=== PATIENT | male | born 1965 | race Caucasian/White ===

== ENCOUNTER 2016-12-15 07:12 | Emergency (ER) | payer MEDICARE, OTHER ==
[~2016-12-15] VITALS: Ht 165.1 cm; Wt 65.9 kg
--- NOTE | 2016-12-15 08:52 | REP ---
LEFT SHOULDER, THREE VIEWS: Three views of the left shoulder are performed. There is mild narrowing at the acromioclavicular joint. There is no acute fracture or dislocation. Signed by Carroll Frank MD 12/18/2016 09:42 A
--- NOTE | 2016-12-15 08:57 | REP ---
BILATERAL INGUINAL ULTRASOUND: Real-time sonographic evaluation of bilateral inguinal regions is performed at rest and with Valsalva maneuver. No inguinal hernia is seen bilaterally. There is no mass or fluid collection. IMPRESSION: No evidence of inguinal hernia bilaterally. Signed by Carroll Frank MD 12/18/2016 09:43 A
[2016-12-15] MEDS ORDERED: IBUP-1022 PO (09:04)
[2016-12-15 09:10] VITALS: BP 123/79
--- NOTE | 2016-12-15 09:24 | REP ---
Right ribs four views: There are lucencies at the anterior tips of the eleventh and twelfth ribs, likely artifact from costochondral calcification, however, correlation with clinical point tenderness is recommended. There are no other right rib abnormalities. There is no right pneumothorax, hemothorax or pulmonary contusion. Signed by Carroll Cardoza MD 12/15/2016 09:15 A
--- NOTE | 2016-12-15 09:26 | REP ---
Left knee four views : There is no fracture or dislocation. Mineralization and joint spaces are normal. There are no calcifications or foreign bodies. Impression: Negative left knee . Signed by Carroll Cardoza MD 12/15/2016 09:17 A
== END 2016-12-15 09:17 | disposition home or self-care (01) ==
LOC: M ED 07:12
DX: S20.211A Contusion of right front wall of thorax, initial encounter (principal); S39.91XA Unspecified injury of abdomen, initial encounter; S80.01XA Contusion of right knee, initial encounter; S80.02XA Contusion of left knee, initial encounter; S40.012A Contusion of left shoulder, initial encounter; W19.XXXA Unspecified fall, initial encounter; Y92.9 Unspecified place or not applicable; Y93.9 Activity, unspecified; Y99.0 Civilian activity done for income or pay; F17.200 Nicotine dependence, unspecified, uncomplicated; Z88.5 Allergy status to narcotic agent

== ENCOUNTER → 2017-04-27 | Outpatient (CLI) | payer OTHER | LOC: M RAD 10:12 | DX: M47.892 Other spondylosis, cervical region (principal); M54.12 Radiculopathy, cervical region | CPT/HCPCS: 72141 ==

== ENCOUNTER → 2017-06-29 | Outpatient (REF) | payer OTHER ==
[2017-06-29 17:49] LABS: PLATELET COUNT, AUTOMATED 270 10^3/uL (150-450)
[2017-06-29 18:02] LABS: PARTIAL THROMBOPLASTIN TIME 31.4 SECONDS (26.8-37.9); PROTHROMBIN TIME 13.3 SECONDS (12.4-14.5)
[2017-06-29 18:16] LABS: COLLAGEN EPINEPHRINE 109 SECONDS (74-162)
== END ==
LOC: M LABDRAW1 17:19
DX: M47.892 Other spondylosis, cervical region (principal)

== ENCOUNTER → 2018-01-04 | Outpatient (REF) | payer OTHER ==
[2018-01-04 16:38] LABS: BLOOD UREA NITROGEN 17 MG/DL (7-18)
[2018-01-04 16:38] LABS: CREATININE FOR GFR 0.84 MG/DL (0.70-1.30); GLOMERULAR FILTRATION RATE > 60.0 (>56)
== END ==
LOC: M LABDRAW1 16:08
DX: M48.02 Spinal stenosis, cervical region (principal)

== ENCOUNTER → 2018-03-06 | Outpatient (REF) | payer OTHER ==
[~2018-03-06] MED LIST: IBUP-1022 PO
[2018-03-06 16:15] LABS: INR 0.96; PROTHROMBIN TIME 12.9 SECONDS (12.1-14.4)
== END ==
LOC: M LABDRAW1 15:32
PROVIDERS: ATTEND Physician Assistant
DX: Z01.812 Encounter for preprocedural laboratory examination (principal)

== ENCOUNTER → 2018-05-31 | Outpatient (CLI) | payer OTHER ==
--- NOTE | 2018-05-31 13:42 | REP ---
BILATERAL INGUINAL SONOGRAPHY: HISTORY: Question right inguinal hernia. The patient is status post bilateral inguinal herniorrhaphy. Comparison CT study is from March 13, 2014. SONOGRAPHIC FINDINGS: There is no abnormal fluid collection or evidence of mass or adenopathy on either side. Real-time on sonography obtained without and with Valsalva maneuver show no evidence of inguinal hernia on the right or the left. However, there is a right femoral hernia transmitting abdominal fat. This is seen with Valsalva only. It is reducible with respiration. IMPRESSION: No inguinal hernia seen on either side. However, there was a right femoral hernia transmitting abdominal fat with Valsalva only. This was spontaneously reducible with respiration. Electronically Signed by Ryan Rodriguez MD 05/31/2018 02:36 P
== END ==
LOC: M RAD 09:56
PROVIDERS: ATTEND Physician Assistant
DX: K41.90 Unilateral femoral hernia, without obstruction or gangrene, not specified as recurrent (principal)

== ENCOUNTER → 2018-10-04 | Outpatient (CLI) | payer OTHER ==
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
== END ==
LOC: M PAIN 13:00
PROVIDERS: ATTEND Anesthesiology
DX: R10.31 Right lower quadrant pain (principal); G89.29 Other chronic pain; F17.210 Nicotine dependence, cigarettes, uncomplicated; Z88.5 Allergy status to narcotic agent; Z79.899 Other long term (current) drug therapy

== ENCOUNTER → 2018-12-18 | Outpatient (CLI) | payer OTHER ==
[~2018-12-18] MED LIST changes: +BUPIVACAINE HCL 0.25% 30 ML VIAL As Ordered ONE; +ISOVUE-M 300 61% 15ML VIAL (Q9967) As Ordered ONE; +LIDOCAINE 1% SDV INJ 30 ML VIAL As Ordered ONE; +TRIAMCINOLONE ACETONIDE SUSP 40 MG/ML VIAL (J3301) As Ordered ONE; +diazePAM 2 MG TAB As Ordered ONE
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
== END ==
LOC: M PAIN 13:00
PROVIDERS: ATTEND Anesthesiology
DX: G58.8 Other specified mononeuropathies (principal); K21.9 Gastro-esophageal reflux disease without esophagitis; F17.210 Nicotine dependence, cigarettes, uncomplicated; Z79.899 Other long term (current) drug therapy; Z88.5 Allergy status to narcotic agent
CPT/HCPCS: 64450; J3301; Q9967

== ENCOUNTER → 2019-01-14 | Outpatient (CLI) | payer OTHER ==
[~2019-01-14] MED LIST changes: -BUPIVACAINE HCL 0.25% 30 ML VIAL As Ordered ONE; -ISOVUE-M 300 61% 15ML VIAL (Q9967) As Ordered ONE; -LIDOCAINE 1% SDV INJ 30 ML VIAL As Ordered ONE; -TRIAMCINOLONE ACETONIDE SUSP 40 MG/ML VIAL (J3301) As Ordered ONE; -diazePAM 2 MG TAB As Ordered ONE
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
== END ==
LOC: M PAIN 14:15
PROVIDERS: ATTEND Family Medicine
DX: G58.8 Other specified mononeuropathies (principal)

== ENCOUNTER → 2019-02-10 | Outpatient (CLI) | payer OTHER ==
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
== END ==
LOC: M PAIN 14:15
PROVIDERS: ATTEND Family Medicine
DX: G58.8 Other specified mononeuropathies (principal); F17.210 Nicotine dependence, cigarettes, uncomplicated; Z88.5 Allergy status to narcotic agent; Z79.899 Other long term (current) drug therapy

== ENCOUNTER 2019-03-29 14:51 | Emergency (ER) | payer MEDICAID, OTHER ==
[~2019-03-29] VITALS: Ht 165.1 cm; Wt 66.2 kg
[2019-03-29] MEDS ORDERED: GABA800T4 PO (15:01)
[2019-03-29] MEDS ORDERED: DULO40CA PO (15:01)
[2019-03-29] MEDS ORDERED: FLUORESCEIN OPHTH 1 MG STRIP OS ONE (15:30)
[2019-03-29] MEDS ORDERED: TETRACAINE 0.5% OPHTH SOLN 4ML OS ONE (15:30)
[2019-03-29] MEDS ORDERED: OFLOXACIN 0.3 % (OCUFLOX) OPTH SOL 5ML OS ONE (15:45)
[2019-03-29] MEDS ORDERED: ADACEL/BOOSTRIX VACCINE (DIPHTH/PERTUSS/ACELL/TETANUS)0.5ML SYR (90715) IM ONE (15:45)
[2019-03-29] MEDS ORDERED: OCUF0.25 OS (15:46)
[2019-03-29 15:55] VITALS: BP 111/61
== END 2019-03-29 16:08 | disposition home or self-care (01) ==
LOC: M ED 14:51
DX: T15.02XA Foreign body in cornea, left eye, initial encounter (principal); H16.002 Unspecified corneal ulcer, left eye; F17.200 Nicotine dependence, unspecified, uncomplicated; F12.10 Cannabis abuse, uncomplicated; Z88.5 Allergy status to narcotic agent

== ENCOUNTER → 2019-05-12 | Outpatient (CLI) | payer OTHER ==
[~2019-05-12] MED LIST changes: +DULO40CA PO; +GABA800T4 PO; +OCUF0.25 OS
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
== END ==
LOC: M PAIN 14:15
PROVIDERS: ATTEND Family Medicine
DX: G58.8 Other specified mononeuropathies (principal); G89.29 Other chronic pain; K21.9 Gastro-esophageal reflux disease without esophagitis; F17.210 Nicotine dependence, cigarettes, uncomplicated; Z88.5 Allergy status to narcotic agent; Z79.899 Other long term (current) drug therapy

== ENCOUNTER → 2019-05-30 | Outpatient (CLI) | payer OTHER ==
--- NOTE | 2019-05-30 10:52 | REPPI ---
Right wrist: Four views. History: Arthralgia. Findings: Four views right wrist demonstrate old post-traumatic deformity of the fifth metacarpal. There is a small subcortical cyst at the base of the first metacarpal and minimal first metacarpal carpal joint spurring is present. Bones, joints and soft tissues are otherwise unremarkable. Impression: No acute abnormality. Mild osteoarthritic changes at the first carpometacarpal articulation. Electronically Signed by Ryan Rodriguez MD 05/30/2019 10:43 A
== END ==
LOC: M PLAIMG 10:04
PROVIDERS: ATTEND Physician Assistant Medical
DX: M18.11 Unilateral primary osteoarthritis of first carpometacarpal joint, right hand (principal)

== ENCOUNTER → 2019-05-30 | Outpatient (REF) | payer OTHER ==
[2019-05-30 13:35] LABS: BASO # 0.1 10^3/uL (0.0-0.2); BASO % 1.2 % (0.0-1.0); EOS # 0.3 10^3/uL (0.0-0.5); HEMATOCRIT 48.5 % (42.0-52.0); HEMOGLOBIN 16.6 g/dl (13.5-17.5); LYMPH # 2.3 10^3/uL (1.5-5.0); LYMPH % 28.6 % (24.0-44.0); MEAN CORPUSCULAR HEMOGLOBIN 30.5 pg (27.0-33.0); MEAN CORPUSCULAR HGB CONC 34.2 g/dl (32.0-36.5); MEAN CORPUSCULAR VOLUME 89.2 fl (80.0-96.0); MONO # 0.6 10^3/uL (0.0-0.8); MONO % 7.8 % (0.0-5.0); NEUTROPHILS # 4.7 10^3/uL (1.5-8.5); NEUTROPHILS % 57.9 % (36.0-66.0); PLATELET COUNT, AUTOMATED 290 10^3/uL (150-450); RED BLOOD COUNT 5.44 10^6/uL (4.30-6.10); WHITE BLOOD COUNT 8.1 10^3/uL (4.0-10.0)
[2019-05-30 13:48] LABS: ALBUMIN 4.2 GM/DL (3.2-5.2); ALT/SGPT 28 U/L (12-78); BILIRUBIN,TOTAL 0.3 MG/DL (0.2-1.0); BLOOD UREA NITROGEN 15 MG/DL (7-18); CALCIUM LEVEL 9.2 MG/DL (8.5-10.1); CARBON DIOXIDE LEVEL 27 MEQ/L (21-32); CHLORIDE LEVEL 109 MEQ/L (98-107); CHOLESTEROL LEVEL 213 MG/DL (<200); CHOLESTEROL RISK RATIO 3.491 (<5); CREATININE FOR GFR 0.77 MG/DL (0.70-1.30); GLOMERULAR FILTRATION RATE > 60.0 (>56); GLUCOSE, FASTING 88 MG/DL (70-100); HDL CHOLESTEROL 61 MG/DL (>40); LDL CHOLESTEROL 137 MG/DL (<100); NON-HDL-C 152 MG/DL; POTASSIUM SERUM 4.2 MEQ/L (3.5-5.1); SODIUM LEVEL 138 MEQ/L (136-145); TOTAL PROTEIN 7.5 GM/DL (6.4-8.2); TRIGLYCERIDES LEVEL 74 MG/DL (<150)
== END ==
LOC: M SFHCPLAZ 09:51
PROVIDERS: ATTEND Physician Assistant Medical
DX: Z12.5 Encounter for screening for malignant neoplasm of prostate (principal); Z12.11 Encounter for screening for malignant neoplasm of colon; Z13.220 Encounter for screening for lipoid disorders

== ENCOUNTER → 2019-06-11 | Outpatient (CLI) | payer OTHER ==
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
== END ==
LOC: M PAIN 11:15
PROVIDERS: ATTEND Family Medicine
DX: G58.8 Other specified mononeuropathies (principal); F17.210 Nicotine dependence, cigarettes, uncomplicated; Z79.899 Other long term (current) drug therapy; Z88.5 Allergy status to narcotic agent

== ENCOUNTER → 2019-07-31 | Outpatient (CLI) | payer OTHER ==
[2019-07-31 15:25] LABS: PLATELET COUNT, AUTOMATED 264 10^3/uL (150-450)
[2019-07-31 15:37] LABS: INR 1.14; PROTHROMBIN TIME 14.3 SECONDS (11.8-14.0)
== END ==
LOC: M LAB 14:50
PROVIDERS: ATTEND Physician Assistant
DX: Z01.818 Encounter for other preprocedural examination (principal); M47.22 Other spondylosis with radiculopathy, cervical region

== ENCOUNTER → 2019-10-02 | Outpatient (REF) | payer OTHER ==
[~2019-10-02] MED LIST changes: +ATOR1TAB21; +CYCL5TAB; +DICL1GEL3; +DULO1CAP4 PO; +NEUR800T PO; +OMEP20TA17
== END ==
LOC: M LAB REF 11:33
PROVIDERS: ATTEND Dermatology
DX: C44.301 Unspecified malignant neoplasm of skin of nose (principal)

== ENCOUNTER 2019-11-14 12:06 | Emergency (ER) | payer OTHER ==
[~2019-11-14 12:06] MED LIST changes: -ATOR1TAB21; -CYCL5TAB; -DICL1GEL3; -DULO1CAP4 PO; -NEUR800T PO; -OMEP20TA17
[2019-11-14 12:42] LABS: VENOUS BASE EXCESS -0.9 (-2.0-2.0); VENOUS O2 SATURATION 56.9 % (60.0-80.0); VENOUS PARTIAL PRESSURE CO2 62.9 mmHg (38.0-50.0); VENOUS PARTIAL PRESSURE O2 30.9 mmHg (30.0-50.0); VENOUS PH 7.266 UNITS (7.330-7.430); VENOUS STANDARD HCO3 22.6 MEQ/L; VENOUS TOTAL CO2 29.9 MEQ/L (24.0-28.0)
[2019-11-14 12:46] LABS: BASO # 0.1 10^3/uL (0.0-0.2); BASO % 0.9 % (0.0-1.0); EOS # 0.2 10^3/uL (0.0-0.5); EOS % 2.6 % (0.0-3.0); HEMATOCRIT 47.4 % (42.0-52.0); HEMOGLOBIN 16.3 g/dl (13.5-17.5); LYMPH # 1.5 10^3/uL (1.5-5.0); LYMPH % 19.5 % (24.0-44.0); MEAN CORPUSCULAR HEMOGLOBIN 31.2 pg (27.0-33.0); MEAN CORPUSCULAR HGB CONC 34.4 g/dl (32.0-36.5); MEAN CORPUSCULAR VOLUME 90.8 fl (80.0-96.0); MONO # 0.5 10^3/uL (0.0-0.8); MONO % 6.8 % (0.0-5.0); NEUTROPHILS # 5.4 10^3/uL (1.5-8.5); NEUTROPHILS % 69.8 % (36.0-66.0); PLATELET COUNT, AUTOMATED 289 10^3/uL (150-450); RED BLOOD COUNT 5.22 10^6/uL (4.30-6.10); WHITE BLOOD COUNT 7.8 10^3/uL (4.0-10.0)
[2019-11-14 13:20] LABS: BLOOD UREA NITROGEN 15 MG/DL (7-18); CALCIUM LEVEL 9.7 MG/DL (8.5-10.1); CARBON DIOXIDE LEVEL 30 MEQ/L (21-32); CHLORIDE LEVEL 105 MEQ/L (98-107); CREATININE FOR GFR 0.84 MG/DL (0.70-1.30); ETHYL ALCOHOL (ETHANOL) < 0.003 % (0.000-0.010); FREE T4 1.01 NG/DL (0.76-1.46); GLOMERULAR FILTRATION RATE > 60.0 (>56); GLUCOSE, FASTING 100 MG/DL (70-100); MAGNESIUM LEVEL 2.3 MG/DL (1.8-2.4); POTASSIUM SERUM 4.5 MEQ/L (3.5-5.1); SODIUM LEVEL 138 MEQ/L (136-145)
[2019-11-14] MEDS ORDERED: NS 1,000 ML IV ONE (16:00)
--- NOTE | 2019-11-14 16:23 | REPVR ---
PROCEDURE INFORMATION: Exam: CT Head Without Contrast Exam date and time: 11/14/2019 1:03 PM Age: 53 years old Clinical indication: Injury or trauma; Fall; Initial encounter; Blunt trauma (contusions or hematomas); Syncope and collapse; Additional info: Syncope/trauma TECHNIQUE: Imaging protocol: Computed tomography of the head without contrast. Axial and coronal reformatted images were created and reviewed. Radiation optimization: All CT scans at this facility use at least one of these dose optimization techniques: automated exposure control; mA and/or kV adjustment per patient size (includes targeted exams where dose is matched to clinical indication); or iterative reconstruction. COMPARISON: No relevant prior studies available. FINDINGS: Brain: No CT evidence of acute intracranial hemorrhage or acute territorial infarction. No significant mass effect or midline shift. Basal cisterns patent. Ventricles: Normal in size and configuration. Bones/joints: No acute osseous abnormality. Mild chronic appearing deformity of the right lamina papyracea. Paranasal sinuses: Mild ethmoid mucosal thickening. Mastoid air cells: Grossly unremarkable. Soft tissues: Grossly unremarkable. IMPRESSION: 1. No CT evidence of acute intracranial pathology. 2. Additional findings, as above. Electronically signed by: Raymond Crane On 11/14/2019 16:23:07 PM
[2019-11-14 16:36] LABS: AMPHETAMINES LEVEL URINE NEGATIVE (NEGATIVE); BARBITURATES URINE NEGATIVE (NEGATIVE); BENZODIAZEPINES URINE NEGATIVE (NEGATIVE); CANNABINOIDS URINE POSITIVE (NEGATIVE); COCAINE METABOLITE URINE NEGATIVE (NEGATIVE); METHADONE URINE NEGATIVE (NEGATIVE); OPIATES URINE NEGATIVE (NEGATIVE); PHENCYCLIDINE URINE NEGATIVE (NEGATIVE)
[2019-11-14 18:45] VITALS: BP 111/60
--- NOTE | 2019-11-15 12:01 | ECGEPIP ---
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
--- NOTE | 2019-11-15 12:07 | ECGEPIP ---
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
[2019-11-21] MEDS ORDERED: ATOR1TAB21 (13:06)
[2019-11-21] MEDS ORDERED: NEUR800T PO (13:06)
[2019-11-21] MEDS ORDERED: DULO1CAP4 PO (13:06)
[2019-11-21] MEDS ORDERED: OMEP20TA17 (13:06)
[2019-11-21] MEDS ORDERED: CYCL5TAB (13:06)
[2019-11-21] MEDS ORDERED: DICL1GEL3 (13:06)
== END 2019-11-14 18:52 | disposition home or self-care (01) ==
LOC: M ED 12:06 → M ED INP 17:34 → UNDOADMIN 17:34 → M ED 18:52
DX: R55 Syncope and collapse (principal); Z79.899 Other long term (current) drug therapy; Z88.5 Allergy status to narcotic agent
CPT/HCPCS: 70450; 80048; 80307; 82803; 83735; 84439; 84443; 85025; 93005; 93041; 96360; 99285; G0480

== ENCOUNTER → 2019-11-14 | Outpatient (REF) | payer OTHER | LOC: M LAB REF 09:16 | PROVIDERS: ATTEND Dermatology | DX: C44.81 Basal cell carcinoma of overlapping sites of skin (principal) ==

== ENCOUNTER → 2019-11-20 | Outpatient (CLI) | payer OTHER ==
[~2019-11-20] MED LIST changes: +ATOR1TAB21; +CYCL5TAB; +DICL1GEL3; +DULO1CAP4 PO; +NEUR800T PO; +OMEP20TA17
== END ==
LOC: M LABSMTC 13:03
PROVIDERS: ATTEND Anesthesiology
DX: Z01.812 Encounter for preprocedural laboratory examination (principal); Z20.828 Contact with and (suspected) exposure to other viral communicable diseases
CPT/HCPCS: C9803; U0003

== ENCOUNTER → 2019-11-21 | Outpatient (CLI) | payer OTHER ==
[~2019-11-21] MED LIST changes: +PROHANCE 279.3MG/ML 15ML VIAL As Ordered ONE
--- NOTE | 2019-11-24 09:50 | REPVR ---
PROCEDURE INFORMATION: Exam: MR Neck Without and With Contrast Exam date and time: 11/21/2019 5:40 PM Age: 54 years old Clinical indication: Condition or disease; Cancer; Other: Lacrimal duct and side of nose; Additional info: Basal cell carcinoma of noseskin TECHNIQUE: Imaging protocol: MR images of the neck without and with intravenous contrast. Contrast material: PROHANCE; Contrast volume: 12 ml; Contrast route: INTRAVENOUS (IV); COMPARISON: MRI-Spine,Cervical without con 04/27/2017 10:41 AM FINDINGS: Orbits: Examination reveals bilateral globes to be normal in size and morphology. The optic nerves are normal in thickness and signal intensity and symmetric bilaterally. The extraocular muscles are normal in thickness and signal intensity. The retroconal fat has a normal appearance. The lacrimal glands appear normal bilaterally. Nasopharynx: Unremarkable. Oropharynx: Unremarkable. Hypopharynx: Unremarkable. Larynx: Unremarkable. Submandibular/Parotid glands: Unremarkable. Sinuses: Mild mucosal thickening is seen in the paranasal sinuses. Retropharyngeal space: Unremarkable. Brain: The visualized brain parenchyma is unremarkable. Vasculature: Unremarkable. Lymph nodes: No significant lymphadenopathy is seen. Soft tissues: Examination reveals approximately 3 x 2 x 1.3 cm heterogeneously enhancing mass in the subcutaneous soft tissues with thickening of the overlying skin located lateral to the right nasal bone and inferomedial to the right orbit in the right nasolabial fold. This appears hypointense on T1 hyperintense on T2 and demonstrates heterogeneous contrast enhancement and is consistent with known history of basal cell carcinoma of the skin. No definite erosion is noted of the adjacent right nasal bone. No definite right intra orbital extension is seen. Bones/joints: Bone marrow signal intensity of the visualized osseous structures is unremarkable. No acute fracture or dislocation is seen. IMPRESSION: Examination reveals approximately 3 x 2 x 1.3 cm heterogeneously enhancing mass in the subcutaneous soft tissues with thickening of the overlying skin located lateral to the right nasal bone and inferomedial to the right orbit in the right nasolabial fold. This appears hypointense on T1 hyperintense on T2 and demonstrates heterogeneous contrast enhancement and is consistent with known history of basal cell carcinoma of the skin. No definite erosion is noted of the adjacent right nasal bone. No definite right intra orbital extension is seen. Electronically signed by: Sonu Gorman On 11/24/2019 09:50:25 AM
== END ==
LOC: M RAD 15:52
PROVIDERS: ATTEND Plastic Surgery Surgery of the Hand
DX: C44.311 Basal cell carcinoma of skin of nose (principal)
CPT/HCPCS: 70543; A9576

== ENCOUNTER 2019-11-25 06:07 | Day surgery (SDC) | payer OTHER ==
[~2019-11-25] VITALS: Ht 166.4 cm; Wt 64.9 kg
[~2019-11-25 06:07] MED LIST changes: +LR 1,000 ML IV ONE; -PROHANCE 279.3MG/ML 15ML VIAL As Ordered ONE
[2019-11-25] MEDS ORDERED: ceFAZolin SOD 1 GM in D5W MINI-BAG PLUS 50 ML IV ONE (06:30)
[2019-11-25] MEDS ORDERED: LIDOCAINE 2% W/EPINEPHRINE 20ML VIAL **PRES FREE As Ordered ONE (07:10)
[2019-11-25] MEDS ORDERED: POLYSPORIN OPHTH OINT 3.5 GM As Ordered ONE (07:11)
[2019-11-25] MEDS ORDERED: POVIDONE-IODINE 5% OPHTH PREP SOL 30ML As Ordered ONE (07:11)
[2019-11-25] MEDS ORDERED: LIDOCAINE 2% 100MG/5ML SDV (FOR ANES.) As Ordered ONE (07:16)
[2019-11-25] MEDS ORDERED: propofoL 200 MG/20 ML VIAL As Ordered ONE (07:16)
[2019-11-25] MEDS ORDERED: ROCURONIUM BROMIDE 50 MG/5 ML VIAL As Ordered ONE (07:16)
[2019-11-25] MEDS ORDERED: ONDANSETRON 4MG/2ML VIAL As Ordered ONE (07:16)
[2019-11-25] MEDS ORDERED: dexameTHASONE 4 MG/ML 1ML VIAL (J1100 PER 1MG) As Ordered ONE (07:16)
[2019-11-25] MEDS ORDERED: fentaNYL 100 MCG/2 ML INJECTION (J3010) As Ordered ONE ×3 (07:17→11:14)
[2019-11-25] MEDS ORDERED: MIDAZOLAM INJ 2MG/2ML VIAL (J2250 PER 1MG) As Ordered ONE (07:17)
[2019-11-25] MEDS ORDERED: EPINEPHrine INJ 1 MG/ML 1ML AMP As Ordered ONE (07:20)
[2019-11-25] MEDS ORDERED: ACETAMINOPHEN 1000MG 100ML IV BTL (OFIRMEV) (J0131 PER 10MG) As Ordered ONE (07:51)
[2019-11-25] MEDS ORDERED: LACRILUBE (AKWA TEARS) OPHTH OINT 3.5 GM As Ordered ONE (07:51)
[2019-11-25] MEDS ORDERED: ePHEDrine SULFATE 25 MG/5 ML(5MG/ML) SYRINGE As Ordered ONE (08:46)
[2019-11-25] MEDS ORDERED: HYDROmorphone HCL 2 MG/ML 1ML VIAL (J1170) As Ordered ONE (08:49)
[2019-11-25] MEDS ORDERED: SUGAMMADEX SODIUM 500 MG/5 ML VIAL (BRIDION) As Ordered ONE (08:49)
--- NOTE | 2019-11-25 09:56 | POST-OPPD ---
Postoperative Procedure Note Date Of Procedure: Nov 25, 2019 PREOPERATIVE DIAGNOSIS: Right nose basal cell carcinoma open wound POSTOPERATIVE DIAGNOSIS: same FINDINGS: Clear margins with basal cell carcinoma wound. PROCEDURE: Excision malignant lesion right side of nose with full thickness skin graft closure. Donor site right posterior ear. SURGEON: Dr Mitchell ANESTHESIA: General SPECIMENS: Margines of basal cell open wound right nose.- FS. Additional mar dayana deep. ESTIMATED BLOOD LOSS: 5 cc REPLACED: none DRAINS: none COMPLICATIONS: none POSTOPERATIVE CONDITION: stable DICTATION: [id number] PAVAN MITCHELL DO Nov 25, 2019 09:56
[2019-11-25] MEDS ORDERED: oxyCODONE 5MG TAB As Ordered ONE (10:13)
[2019-11-25] MEDS ORDERED: LR 1,000 ML IV SCH (10:30)
[2019-11-25] MEDS ORDERED: ONDANSETRON 4MG/2ML VIAL IV PRN (10:30)
[2019-11-25] MEDS ORDERED: MEPERIDINE INJ 25 MG/ML VIAL (J2175) IV PRN (10:30)
[2019-11-25] MEDS ORDERED: METOCLOPRAMIDE INJ 10MG/2ML VIAL (J2765 PER 1) IV PRN (10:30)
[2019-11-25] MEDS ORDERED: oxyCODONE 5MG TAB PO PRN (10:30)
[2019-11-25] MEDS: fentaNYL 100 MCG/2 ML INJECTION (J3010) IV PRN ×6 (10:47→11:31)
[2019-11-25] MEDS ORDERED: fentaNYL 100 MCG/2 ML INJECTION (J3010) IV PRN (11:30)
[2019-11-25] MEDS ORDERED: traMADol 50 MG TAB PO PRN (11:45)
[2019-11-25 12:45] VITALS: BP 124/54
--- NOTE | 2019-12-03 09:50 | RO ---
DATE OF OPERATION: 11/25/2019 PREOPERATIVE DIAGNOSIS: Right nose basal cell carcinoma, open wound. POSTOPERATIVE DIAGNOSIS: Right nose basal cell carcinoma, open wound. PROCEDURE: Excision of malignant lesion, right side of the nose with full- thickness skin graft closure. Donor site is right posterior ear. ATTENDING SURGEON: Daniella Sherwood DO ANESTHESIA: General. SPECIMENS: * Margins of basal cell open wound to the right nose, frozen section. * Additional deep margins. ESTIMATED BLOOD LOSS: 5 mL. FLUID REPLACEMENT: None. DRAINS: None. COMPLICATIONS: None. PROCEDURE: This is a 54-year-old male who has chronic basal cell carcinoma growing at the side of his nose extending into the medial canthus area. He has had Mohs surgery which was not completed due to the closeness to the medial canthus and patient intolerance to complete the procedure. The patient was scheduled for surgical excision with frozen section, additional margins, and a closure. Risks, benefits, and alternatives were discussed with the patient in detail. He strongly wishes to have a skin graft versus the flap if possible. So, he was marked in the pre-operative holding area. He is brought into the operating room. General anesthesia is induced. Preoperative antibiotics are given. Sequentials were placed on the lower calf. He was prepped and draped in the usual sterile fashion. We started our procedure by placing the Bacitracin ophthalmic ointment into the right and left eyes. The right side was taped laterally. The wound was measured. It is 2.4 x 1.7-cm. He was prepped and draped in the usual sterile fashion. The area of the wound was infiltrated with 2 mL of 2% Lidocaine with epinephrine. Then, 2-mm margins were taken circumferentially throughout the wound and also at the base. It was oriented properly and sent to pathology for frozen section. Hemostasis was obtained using electrocautery. The ciliary edge is not violated at this point, but it is within 3 mm off of the edge of the eye. Pathology is coming back clear margins, so the new wound is measured and it is 2.5 x 2 cm. Appropriate full-thickness skin graft was taken from the donor site in the postauricular area. The graft is prepped and thinned and then it was sutured in place with interrupted 4-0 Monocryl and 5-0 plain gut sutures. Bolster dressing was created. The posterior donor site was irrigated and closed in layers with interrupted 4-0 Vicryl and 4-0 Monocryl sutures. Steri-Strips were applied. The patient was extubated in the operating room without any difficulty and transferred to the recovery room in stable condition. ABHISHEK
== END 2019-11-25 12:45 | disposition home or self-care (01) ==
LOC: M SDC 06:07
PROVIDERS: ATTEND Plastic Surgery Surgery of the Hand
DX: C44.319 Basal cell carcinoma of skin of other parts of face (principal); L57.0 Actinic keratosis; E78.5 Hyperlipidemia, unspecified; F12.10 Cannabis abuse, uncomplicated; F17.218 Nicotine dependence, cigarettes, with other nicotine-induced disorders; Z88.5 Allergy status to narcotic agent; Z79.899 Other long term (current) drug therapy
CPT/HCPCS: 11643; 15260; 88305; 88331; J0131; J0690; J1100; J1170; J2250; J2405; J3010

== ENCOUNTER → 2019-12-23 | Outpatient (CLI) | payer OTHER ==
[~2019-12-23] MED LIST changes: +ISOVUE-370 76% 100ML VIAL As Ordered ONE; -LR 1,000 ML IV ONE
--- NOTE | 2019-12-23 10:22 | REP ---
INDICATION: COUGH, NODULE. Nicotine dependence. COMPARISON: Comparison CT chest June 02, 2015 from [facility].. TECHNIQUE: Helical scanning is acquired. 3 mm axial images re-formatted. Coronal and sagittal MPR images were generated and coronal MIP images are generated. The contrast enhancement dose is 75 mL of intravenous ProHance. FINDINGS: Preliminary digital geological technical officer radiograph is unremarkable. Previously identified 3 mm subpleural nodule in the right upper lobe is again noted unchanged and displayed on page 54 of 116 and series 201 of today's study. This is benign having been stable since 2016. No new pulmonary nodule is appreciated. No pulmonary mass or infiltrate is seen. There is linear fibrosis versus plate-like atelectasis in the right lower lobe posteriorly. This is a new finding. No pleural or pericardial effusion is seen. There are tiny foci of granulomatous lymph node calcifications in the right paratracheal region. No evidence of pathologic adenopathy is seen. Contrast enhanced CT study images through the heart show relatively thick left ventricular myocardium question hypertension or other etiology for left ventricular hypertrophy. IMPRESSION: Stable 3 mm nodule unchanged since 2016. No significant pulmonary nodule seen. Findings suggestive of left ventricular hypertrophy. Question hypertension versus other cause of left ventricular hypertrophy. No aortic valvular calcification is appreciated by CT. Mild linear fibrosis versus plate-like atelectasis right base. <Electronically signed by Angel Rodriguez > 12/23/19 [id number]
== END ==
LOC: M RAD 08:56
PROVIDERS: ATTEND Family Medicine
DX: R91.1 Solitary pulmonary nodule (principal); R05 Cough
CPT/HCPCS: 71260; Q9967

== ENCOUNTER → 2019-12-24 | Outpatient (REF) | payer OTHER ==
[~2019-12-24] MED LIST changes: -ISOVUE-370 76% 100ML VIAL As Ordered ONE
== END ==
LOC: M SFHCPLAZ 17:25
PROVIDERS: ATTEND Physician Assistant
DX: T14.8XXA Other injury of unspecified body region, initial encounter (principal); X58.XXXA Exposure to other specified factors, initial encounter; Y92.9 Unspecified place or not applicable

== ENCOUNTER → 2020-01-14 | Outpatient (REF) | payer OTHER | LOC: M LAB REF 17:26 | PROVIDERS: ATTEND Dermatology | DX: L57.0 Actinic keratosis (principal); L57.8 Other skin changes due to chronic exposure to nonionizing radiation ==

== ENCOUNTER → 2020-01-20 | Outpatient (CLI) | payer OTHER ==
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
== END ==
LOC: M ONCR 12:55
PROVIDERS: ATTEND General Practice
DX: C44.311 Basal cell carcinoma of skin of nose (principal)

== ENCOUNTER → 2020-03-03 | Outpatient (CLI) | payer OTHER | LOC: M LABSMTC 11:30 | PROVIDERS: ATTEND Physical Medicine & Rehabilitation | DX: Z20.822 Contact with and (suspected) exposure to COVID-19 (principal) ==

== ENCOUNTER → 2020-09-30 | Outpatient (CLI) | payer OTHER ==
[2020-09-30 13:09] LABS: BASO # 0.1 10^3/uL (0.0-0.2); BASO % 1.2 % (0.0-1.0); EOS # 0.3 10^3/uL (0.0-0.5); EOS % 4.6 % (0.0-3.0); HEMATOCRIT 45.4 % (42.0-52.0); HEMOGLOBIN 15.6 g/dl (13.5-17.5); LYMPH # 1.9 10^3/uL (1.5-5.0); MEAN CORPUSCULAR HEMOGLOBIN 31.2 pg (27.0-33.0); MEAN CORPUSCULAR HGB CONC 34.4 g/dl (32.0-36.5); MEAN CORPUSCULAR VOLUME 90.8 fl (80.0-96.0); MONO # 0.5 10^3/uL (0.0-0.8); MONO % 9.6 % (2.0-8.0); NEUTROPHILS # 2.8 10^3/uL (1.5-8.5); NEUTROPHILS % 50.2 % (36.0-66.0); PLATELET COUNT, AUTOMATED 252 10^3/uL (150-450); WHITE BLOOD COUNT 5.6 10^3/uL (4.0-10.0)
[2020-09-30 13:50] LABS: ALBUMIN 4.1 GM/DL (3.2-5.2); ALT/SGPT 33 U/L (12-78); BILIRUBIN,TOTAL 0.3 MG/DL (0.2-1.0); BLOOD UREA NITROGEN 13 MG/DL (7-18); CALCIUM LEVEL 8.9 MG/DL (8.5-10.1); CARBON DIOXIDE LEVEL 28 MEQ/L (21-32); CHLORIDE LEVEL 105 MEQ/L (98-107); CHOLESTEROL LEVEL 198 MG/DL (<200); CPK CREATINE PHOSPHOKINASE 337 U/L (39-308); CREATININE FOR GFR 0.74 MG/DL (0.70-1.30); GLOMERULAR FILTRATION RATE > 60.0 (>56); GLUCOSE, FASTING 83 MG/DL (70-100); HDL CHOLESTEROL 66 MG/DL (>40); LDL CHOLESTEROL 120 MG/DL (<100); NON-HDL-C 132 MG/DL; POTASSIUM SERUM 4.2 MEQ/L (3.5-5.1); SODIUM LEVEL 139 MEQ/L (136-145); TOTAL PROTEIN 6.9 GM/DL (6.4-8.2); TRIGLYCERIDES LEVEL 60 MG/DL (<150)
== END ==
LOC: M PLALAB 09:34
PROVIDERS: ATTEND Physician Assistant Medical
DX: K21.9 Gastro-esophageal reflux disease without esophagitis (principal); Z12.5 Encounter for screening for malignant neoplasm of prostate; E78.00 Pure hypercholesterolemia, unspecified

== ENCOUNTER 2021-08-12 18:04 | Emergency (ER) | payer OTHER ==
[~2021-08-12] VITALS: Ht 165.1 cm; Wt 64.9 kg
[~2021-08-12 18:04] MED LIST changes: -ZOVI5CRE4 TOP
[2021-08-12 19:42] LABS: BASO # 0.1 10^3/uL (0.0-0.2); BASO % 1.1 % (0.0-1.0); EOS # 0.3 10^3/uL (0.0-0.5); EOS % 4.9 % (0.0-3.0); HEMATOCRIT 38.6 % (42.0-52.0); LYMPH # 1.8 10^3/uL (1.5-5.0); LYMPH % 30.8 % (24.0-44.0); MEAN CORPUSCULAR HEMOGLOBIN 30.9 pg (27.0-33.0); MEAN CORPUSCULAR HGB CONC 34.5 g/dl (32.0-36.5); MEAN CORPUSCULAR VOLUME 89.8 fl (80.0-96.0); MONO # 0.5 10^3/uL (0.0-0.8); MONO % 9.1 % (2.0-8.0); NEUTROPHILS # 3.1 10^3/uL (1.5-8.5); NEUTROPHILS % 53.7 % (36.0-66.0); PLATELET COUNT, AUTOMATED 268 10^3/uL (150-450); WHITE BLOOD COUNT 5.7 10^3/uL (4.0-10.0)
[2021-08-12 19:52] LABS: HEMOGLOBIN 13.3 g/dl (13.5-17.5)
[2021-08-12 19:55] LABS: INR 0.95; PROTHROMBIN TIME 13.1 SECONDS (12.7-14.5)
[2021-08-12 19:56] LABS: PARTIAL THROMBOPLASTIN TIME 30.5 SECONDS (25.9-37.0)
[2021-08-12 20:03] LABS: CK-MB VALUE MASS 3.4 NG/ML (<3.6); MB/CK RELATIVE INDEX 2.15 (< OR =4)
[2021-08-12 20:33] LABS: ALBUMIN 3.2 GM/DL (3.2-5.2); ALT/SGPT 52 U/L (12-78); BILIRUBIN,DIRECT < 0.1 MG/DL (0.0-0.2); BILIRUBIN,TOTAL < 0.1 MG/DL (0.2-1.0); BLOOD UREA NITROGEN 26 MG/DL (7-18); CALCIUM LEVEL 9.3 MG/DL (8.5-10.1); CARBON DIOXIDE LEVEL 27 MEQ/L (21-32); CHLORIDE LEVEL 113 MEQ/L (98-107); CREATININE FOR GFR 0.72 MG/DL (0.70-1.30); FREE T4 0.96 NG/DL (0.76-1.46); GLOMERULAR FILTRATION RATE > 60.0 (>56); GLUCOSE, FASTING 96 MG/DL (70-100); LIPASE 111 U/L (73-393); POTASSIUM SERUM 4.5 MEQ/L (3.5-5.1); SODIUM LEVEL 146 MEQ/L (136-145); TOTAL PROTEIN 6.2 GM/DL (6.4-8.2)
[2021-08-12] MEDS ORDERED: ISOVUE-370 76% 100ML VIAL As Ordered ONE (20:41)
[2021-08-12 21:37] LABS: CK-MB VALUE MASS 3.1 NG/ML (<3.6); MB/CK RELATIVE INDEX 2.21 (< OR =4)
[2021-08-12] MEDS ORDERED: ZOVI5CRE4 TOP (23:22)
[2021-08-13 00:15] VITALS: BP 112/69
== END 2021-08-13 00:46 | disposition home or self-care (01) ==
LOC: M ED 18:04
DX: B02.9 Zoster without complications (principal); R07.89 Other chest pain; F17.200 Nicotine dependence, unspecified, uncomplicated; Z79.899 Other long term (current) drug therapy; Z88.5 Allergy status to narcotic agent
CPT/HCPCS: 71045; 71275; 80048; 80076; 81001; 82550; 82553; 82803; 83605; 83690; 84439; 84443; 85025; 85610; 85730; 87252; 93005; 93041; 94760; 99285; Q9967

== ENCOUNTER → 2021-08-12 | Outpatient (CLI) | payer OTHER ==
[~2021-08-12] MED LIST changes: +ZOVI5CRE4 TOP
[2021-08-12 13:26] LABS: BASO # 0.1 10^3/uL (0.0-0.2); BASO % 1.6 % (0.0-1.0); EOS # 0.4 10^3/uL (0.0-0.5); EOS % 6.3 % (0.0-3.0); HEMATOCRIT 46.8 % (42.0-52.0); HEMOGLOBIN 15.6 g/dl (13.5-17.5); LYMPH # 1.9 10^3/uL (1.5-5.0); LYMPH % 33.7 % (24.0-44.0); MEAN CORPUSCULAR HEMOGLOBIN 30.4 pg (27.0-33.0); MEAN CORPUSCULAR HGB CONC 33.3 g/dl (32.0-36.5); MEAN CORPUSCULAR VOLUME 91.2 fl (80.0-96.0); MONO # 0.6 10^3/uL (0.0-0.8); MONO % 11.1 % (2.0-8.0); NEUTROPHILS # 2.7 10^3/uL (1.5-8.5); NEUTROPHILS % 46.9 % (36.0-66.0); PLATELET COUNT, AUTOMATED 292 10^3/uL (150-450); RED BLOOD COUNT 5.13 10^6/uL (4.30-6.10); WHITE BLOOD COUNT 5.7 10^3/uL (4.0-10.0)
[2021-08-12 14:14] LABS: ALBUMIN 3.5 GM/DL (3.2-5.2); ALT/SGPT 62 U/L (12-78); BILIRUBIN,TOTAL < 0.1 MG/DL (0.2-1.0); BLOOD UREA NITROGEN 24 MG/DL (7-18); CALCIUM LEVEL 9.2 MG/DL (8.5-10.1); CARBON DIOXIDE LEVEL 30 MEQ/L (21-32); CHLORIDE LEVEL 109 MEQ/L (98-107); CREATININE FOR GFR 0.72 MG/DL (0.70-1.30); GLOMERULAR FILTRATION RATE > 60.0 (>56); GLUCOSE, FASTING 81 MG/DL (70-100); POTASSIUM SERUM 6.2 MEQ/L (3.5-5.1); SODIUM LEVEL 142 MEQ/L (136-145)
[2021-08-13 14:12] LABS: HERPES ZOSTER, VARICELLA IgM 1.16 index (0.00-0.90)
== END ==
LOC: M PLALAB 09:26
PROVIDERS: ATTEND Physician Assistant
DX: R07.89 Other chest pain (principal); R21 Rash and other nonspecific skin eruption

== ENCOUNTER → 2022-03-24 | Outpatient (REF) | payer OTHER, MEDICAID ==
[~2022-03-24] MED LIST changes: +ZOVI5CRE4 TOP
[2022-03-24 17:34] LABS: BASO # 0.1 10^3/uL (0.0-0.2); BASO % 1.6 % (0.0-1.0); EOS # 0.2 10^3/uL (0.0-0.5); EOS % 3.3 % (0.0-3.0); HEMATOCRIT 45.5 % (42.0-52.0); HEMOGLOBIN 15.6 g/dl (13.5-17.5); LYMPH # 2.1 10^3/uL (1.5-5.0); LYMPH % 37.3 % (24.0-44.0); MEAN CORPUSCULAR HEMOGLOBIN 30.8 pg (27.0-33.0); MEAN CORPUSCULAR HGB CONC 34.3 g/dl (32.0-36.5); MEAN CORPUSCULAR VOLUME 89.9 fl (80.0-96.0); MONO # 0.6 10^3/uL (0.0-0.8); MONO % 10.3 % (2.0-8.0); NEUTROPHILS # 2.6 10^3/uL (1.5-8.5); NEUTROPHILS % 47.5 % (36.0-66.0); PLATELET COUNT, AUTOMATED 253 10^3/uL (150-450); RED BLOOD COUNT 5.06 10^6/uL (4.30-6.10); WHITE BLOOD COUNT 5.5 10^3/uL (4.0-10.0)
[2022-03-24 17:38] LABS: C REACTIVE PROTEIN QUANTITATIV < 0.40 MG/DL (<1.0)
[2022-03-24 17:39] LABS: RHEUMATOID FACTOR QUANT 5.5 IU/ML (<14)
[2022-03-24 17:40] LABS: ALBUMIN 4.3 G/DL (3.2-5.2); ALKALINE PHOSPHATASE 84 U/L (46-116); ALT/SGPT 37 U/L (7.0-40); AST/SGOT 41 U/L (<34); BILIRUBIN,TOTAL 0.6 MG/DL (0.3-1.2); BLOOD UREA NITROGEN 22 MG/DL (9-23); CALCIUM LEVEL 9.3 MG/DL (8.5-10.1); CARBON DIOXIDE LEVEL 30 MMOL/L (20-31); CHLORIDE LEVEL 104 MMOL/L (98-107); CHOLESTEROL LEVEL 141 MG/DL (<200); CREATININE FOR GFR 0.81 MG/DL (0.70-1.30); GLOMERULAR FILTRATION RATE > 60.0 (>56); GLUCOSE, FASTING 87 MG/DL (60-100); HDL CHOLESTEROL 63.9 MG/DL (>40); LDL CHOLESTEROL 65.5 MG/DL (<100); NON-HDL-C 77 MG/DL; POTASSIUM SERUM 4.6 MMOL/L (3.5-5.1); SODIUM LEVEL 140 MMOL/L (136-145); TRIGLYCERIDES LEVEL 58 MG/DL (<150)
[2022-03-24 17:53] LABS: ERYTHROCYTE SEDIMENTATION RATE 2 mm/hr (0-20)
[2022-03-27 19:07] LABS: ANA (HEP2) Negative (.); CYCLIC CITRULLINATED PEPTIDE 6 units (0-19)
== END ==
LOC: M SFHCPLAZ 11:21
PROVIDERS: ATTEND Physician Assistant Medical
DX: M25.542 Pain in joints of left hand (principal); E78.00 Pure hypercholesterolemia, unspecified; Z12.5 Encounter for screening for malignant neoplasm of prostate

== ENCOUNTER → 2022-03-27 | Outpatient (CLI) | payer OTHER | LOC: M PLAIMG 14:17 | PROVIDERS: ATTEND Physician Assistant Medical | DX: M25.541 Pain in joints of right hand (principal); M25.542 Pain in joints of left hand ==

== ENCOUNTER → 2022-05-01 | Outpatient (CLI) | payer MEDICAID, OTHER | LOC: M LABSMTC 11:43 | PROVIDERS: ATTEND Anesthesiology | DX: Z01.812 Encounter for preprocedural laboratory examination (principal) ==

== ENCOUNTER 2022-05-05 11:01 | Day surgery (SDC) | payer OTHER ==
[~2022-05-05] VITALS: Ht 166.4 cm; Wt 64.6 kg
[~2022-05-05 11:01] MED LIST changes: +NS 1,000 ML IV ONE
[2022-05-05] MEDS ORDERED: LIDOCAINE 2% 100MG/5ML SDV (FOR ANES.) As Ordered ONE (12:04)
[2022-05-05] MEDS ORDERED: propofoL 200 MG/20 ML VIAL As Ordered ONE (12:04)
[2022-05-05] MEDS ORDERED: fentaNYL 100 MCG/2 ML INJECTION As Ordered ONE (12:36)
[2022-05-05 13:35] VITALS: BP 129/75
== END 2022-05-05 14:01 | disposition home or self-care (01) ==
LOC: M OPP 11:01
PROVIDERS: ATTEND Internal Medicine Gastroenterology
DX: Z12.11 Encounter for screening for malignant neoplasm of colon (principal); D12.5 Benign neoplasm of sigmoid colon; K64.8 Other hemorrhoids; K22.9 Disease of esophagus, unspecified; F17.200 Nicotine dependence, unspecified, uncomplicated; I10 Essential (primary) hypertension; E78.00 Pure hypercholesterolemia, unspecified; Z79.02 Long term (current) use of antithrombotics/antiplatelets; Z79.891 Long term (current) use of opiate analgesic; Z79.899 Other long term (current) drug therapy; Z88.5 Allergy status to narcotic agent; R91.8 Other nonspecific abnormal finding of lung field
CPT/HCPCS: 43239; 45385; 88305; J3010

== ENCOUNTER → 2022-07-19 | Outpatient (REF) | payer OTHER, MEDICAID ==
[~2022-07-19] MED LIST changes: -NS 1,000 ML IV ONE
== END ==
LOC: M SFHCPLAZ 13:55
PROVIDERS: ATTEND Physician Assistant Medical
DX: E78.00 Pure hypercholesterolemia, unspecified (principal); Z12.5 Encounter for screening for malignant neoplasm of prostate; Z53.9 Procedure and treatment not carried out, unspecified reason

== ENCOUNTER → 2022-07-19 | Outpatient (CLI) | payer OTHER, MEDICAID ==
[2022-07-19 16:36] LABS: CPK CREATINE PHOSPHOKINASE 396 U/L (46-171)
[2022-07-19 16:37] LABS: ALBUMIN 3.6 G/DL (3.2-5.2); ALKALINE PHOSPHATASE 114 U/L (46-116); ALT/SGPT 48 U/L (7.0-40); AST/SGOT 48 U/L (<34); BILIRUBIN,TOTAL 0.3 MG/DL (0.3-1.2); BLOOD UREA NITROGEN 23 MG/DL (9-23); CALCIUM LEVEL 8.5 MG/DL (8.5-10.1); CARBON DIOXIDE LEVEL 29 MMOL/L (20-31); CHLORIDE LEVEL 107 MMOL/L (98-107); CHOLESTEROL LEVEL 126 MG/DL (<200); CHOLESTEROL RISK RATIO 2.16 (<5); CREATININE FOR GFR 0.75 MG/DL (0.70-1.30); GLOMERULAR FILTRATION RATE > 60.0 (>56); GLUCOSE, FASTING 89 MG/DL (60-100); HDL CHOLESTEROL 58.1 MG/DL (>40); LDL CHOLESTEROL 55.7 MG/DL (<100); NON-HDL-C 67.9 MG/DL; POTASSIUM SERUM 3.9 MMOL/L (3.5-5.1); SODIUM LEVEL 141 MMOL/L (136-145); TOTAL PROTEIN 6.4 G/DL (5.7-8.2); TRIGLYCERIDES LEVEL 61 MG/DL (<150)
== END ==
LOC: M PLALAB 14:05
PROVIDERS: ATTEND Physician Assistant Medical
DX: E78.00 Pure hypercholesterolemia, unspecified (principal); Z12.5 Encounter for screening for malignant neoplasm of prostate

== ENCOUNTER → 2022-07-27 | Outpatient (CLI) | payer OTHER ==
[2022-07-27 07:54] LABS: INR 0.96
[2022-07-27 07:55] LABS: PARTIAL THROMBOPLASTIN TIME 30.3 SECONDS (24.8-34.2)
[2022-07-27 08:10] LABS: CPK CREATINE PHOSPHOKINASE 400 U/L (46-171)
[2022-07-27 08:18] LABS: HEPATITIS B SURFACE ANTIBODY NEGATIVE (POSITIVE)
[2022-07-27 08:30] LABS: HEPATITIS B SURFACE ANTIGEN NEGATIVE (NEGATIVE)
[2022-07-27 08:51] LABS: HEPATITIS C VIRUS ABY INDEX 0.1 INDEX (<0.8)
[2022-07-27 09:07] LABS: ALBUMIN 3.9 G/DL (3.2-5.2); ALKALINE PHOSPHATASE 105 U/L (46-116); ALT/SGPT 42 U/L (7.0-40); AST/SGOT 40 U/L (<34); BILIRUBIN,TOTAL 0.4 MG/DL (0.3-1.2); BLOOD UREA NITROGEN 24 MG/DL (9-23); CALCIUM LEVEL 9.2 MG/DL (8.5-10.1); CARBON DIOXIDE LEVEL 26 MMOL/L (20-31); CHLORIDE LEVEL 108 MMOL/L (98-107); CREATININE FOR GFR 0.76 MG/DL (0.70-1.30); GLOMERULAR FILTRATION RATE > 60.0 (>56); GLUCOSE, FASTING 95 MG/DL (60-100); POTASSIUM SERUM 4.3 MMOL/L (3.5-5.1); SODIUM LEVEL 141 MMOL/L (136-145); TOTAL PROTEIN 6.7 G/DL (5.7-8.2)
[2022-07-31 16:08] LABS: ANA (HEP2) Negative (.); ANTI-MITOCHONDRIAL ANTIBODY <20.0 Units (0.0-20.0); CK 1 (BB) 0 % (0); CK 2 (MB) 0 % (0-3); CK 3 (MM) 100 % (97-100); CK MACRO I PERCENT 0 % (Not Observed); CK MACRO II PERCENT 0 % (Not Observed); CK TOTAL 398 U/L (41-331); HEPATITIS A IgG TOTAL Negative (Negative)
== END ==
LOC: M RAD 06:51
PROVIDERS: ATTEND Physician Assistant Medical
DX: R79.89 Other specified abnormal findings of blood chemistry (principal); R74.8 Abnormal levels of other serum enzymes

== ENCOUNTER → 2022-09-07 | Outpatient (REF) | payer OTHER, MEDICAID ==
[2022-09-07 20:25] LABS: CPK CREATINE PHOSPHOKINASE 527 U/L (46-171)
[2022-09-07 21:46] LABS: ALKALINE PHOSPHATASE 105 U/L (46-116); ALT/SGPT 30 U/L (7.0-40); AST/SGOT 17 U/L (<34); BILIRUBIN,TOTAL 0.5 MG/DL (0.3-1.2); BLOOD UREA NITROGEN 19 MG/DL (9-23); CARBON DIOXIDE LEVEL 26 MMOL/L (20-31); CHLORIDE LEVEL 106 MMOL/L (98-107); CREATININE FOR GFR 0.69 MG/DL (0.70-1.30); GLOMERULAR FILTRATION RATE > 60.0 (>56); GLUCOSE, FASTING 111 MG/DL (60-100); POTASSIUM SERUM 4.5 MMOL/L (3.5-5.1); SODIUM LEVEL 140 MMOL/L (136-145); TOTAL PROTEIN 6.6 G/DL (5.7-8.2)
== END ==
LOC: M SFHCCLAY 10:58
PROVIDERS: ATTEND Physician Assistant Medical
DX: R74.8 Abnormal levels of other serum enzymes (principal)

== ENCOUNTER → 2023-01-22 | Outpatient (REF) | payer OTHER, MEDICAID ==
[~2023-01-22] MED LIST changes: +DICL100G10; -DICL1GEL3
== END ==
LOC: M SFHCPLAZ 08:21
PROVIDERS: ATTEND Physician Assistant Medical
DX: R79.89 Other specified abnormal findings of blood chemistry (principal)

== ENCOUNTER → 2023-01-23 | Outpatient (CLI) | payer OTHER | LOC: M PLAIMG 11:53 | PROVIDERS: ATTEND Physician Assistant Medical | DX: M47.896 Other spondylosis, lumbar region (principal); M43.17 Spondylolisthesis, lumbosacral region ==

== ENCOUNTER → 2023-05-17 | Outpatient (CLI) | payer OTHER ==
[2023-05-17 16:02] LABS: BASO # 0.1 10^3/uL (0.0-0.2); BASO % 1.5 % (0.0-1.0); EOS # 0.3 10^3/uL (0.0-0.5); EOS % 4.8 % (0.0-3.0); HEMOGLOBIN 16.7 g/dl (13.5-17.5); LYMPH # 2.4 10^3/uL (1.5-5.0); LYMPH % 39.1 % (24.0-44.0); MEAN CORPUSCULAR HEMOGLOBIN 30.5 pg (27.0-33.0); MEAN CORPUSCULAR HGB CONC 34.1 g/dl (32.0-36.5); MEAN CORPUSCULAR VOLUME 89.6 fl (80.0-96.0); MONO # 0.5 10^3/uL (0.0-0.8); MONO % 8.1 % (2.0-8.0); NEUTROPHILS # 2.8 10^3/uL (1.5-8.5); NEUTROPHILS % 46.2 % (36.0-66.0); PLATELET COUNT, AUTOMATED 246 10^3/uL (150-450); RED BLOOD COUNT 5.47 10^6/uL (4.30-6.10); WHITE BLOOD COUNT 6.1 10^3/uL (4.0-10.0)
[2023-05-17 16:29] LABS: ALBUMIN 4.4 G/DL (3.2-5.2); ALKALINE PHOSPHATASE 90 U/L (46-116); ALT/SGPT 46 U/L (7.0-40); AST/SGOT 37 U/L (<34); BILIRUBIN,TOTAL 0.4 MG/DL (0.3-1.2); BLOOD UREA NITROGEN 19 MG/DL (9-23); CALCIUM LEVEL 9.7 MG/DL (8.5-10.1); CARBON DIOXIDE LEVEL 30 MMOL/L (20-31); CHLORIDE LEVEL 105 MMOL/L (98-107); CHOLESTEROL LEVEL 146 MG/DL (<200); CHOLESTEROL RISK RATIO 2.33 (<5); CREATININE FOR GFR 0.72 MG/DL (0.70-1.30); GLOMERULAR FILTRATION RATE > 60.0 (>56); GLUCOSE, FASTING 88 MG/DL (60-100); HDL CHOLESTEROL 62.4 MG/DL (>40); LDL CHOLESTEROL 69.8 MG/DL (<100); NON-HDL-C 83.6 MG/DL; POTASSIUM SERUM 4.8 MMOL/L (3.5-5.1); SODIUM LEVEL 139 MMOL/L (136-145); TRIGLYCERIDES LEVEL 69 MG/DL (<150)
[2023-05-17 16:33] LABS: CPK CREATINE PHOSPHOKINASE 285 U/L (46-171)
== END ==
LOC: M PLAIMG 12:27
PROVIDERS: ATTEND Physician Assistant Medical
DX: R07.89 Other chest pain (principal); F17.200 Nicotine dependence, unspecified, uncomplicated; E78.00 Pure hypercholesterolemia, unspecified

== ENCOUNTER → 2023-08-03 | Outpatient (CLI) | payer OTHER | LOC: M RAD 15:59 | PROVIDERS: ATTEND Pain Medicine Interventional Pain Medicine | DX: M54.16 Radiculopathy, lumbar region (principal) ==

== ENCOUNTER → 2023-09-20 | Outpatient (CLI) | payer OTHER | LOC: M PLALAB 13:56 | PROVIDERS: ATTEND Physician Assistant Medical | DX: Z12.5 Encounter for screening for malignant neoplasm of prostate (principal) ==

== ENCOUNTER → 2024-01-22 | Outpatient (CLI) | payer OTHER ==
[~2024-01-22] MED LIST changes: -CYCL5TAB; +CYCL5TAB4; +GABA-1635 PO; -GABA800T4 PO
== END ==
LOC: M PLAIMG 15:46
PROVIDERS: ATTEND Physician Assistant Medical
DX: R07.89 Other chest pain (principal); R79.89 Other specified abnormal findings of blood chemistry; M47.894 Other spondylosis, thoracic region; M19.011 Primary osteoarthritis, right shoulder; M19.012 Primary osteoarthritis, left shoulder

== ENCOUNTER → 2024-01-30 | Outpatient (REF) | payer OTHER, MEDICAID | LOC: M SFHCCLAY 14:35 | PROVIDERS: ATTEND Physician Assistant Medical | DX: R79.89 Other specified abnormal findings of blood chemistry (principal) ==

== ENCOUNTER → 2024-03-31 | Outpatient (CLI) | payer MEDICAID, OTHER | LOC: M PLAIMG 15:50 | PROVIDERS: ATTEND Physician Assistant Medical | DX: M25.521 Pain in right elbow (principal); M77.8 Other enthesopathies, not elsewhere classified ==

== ENCOUNTER → 2024-05-23 | Outpatient (CLI) | payer OTHER ==
[2024-05-23 19:25] LABS: BASO # 0.1 10^3/uL (0.0-0.2); BASO % 1.6 % (0.0-1.0); EOS # 0.3 10^3/uL (0.0-0.5); HEMATOCRIT 47.3 % (42.0-52.0); HEMOGLOBIN 16.2 g/dl (13.5-17.5); MEAN CORPUSCULAR HEMOGLOBIN 30.3 pg (27.0-33.0); MEAN CORPUSCULAR HGB CONC 34.2 g/dl (32.0-36.5); MEAN CORPUSCULAR VOLUME 88.4 fl (80.0-96.0); MONO # 0.7 10^3/uL (0.0-0.8); MONO % 9.3 % (2.0-8.0); NEUTROPHILS # 4.1 10^3/uL (1.5-8.5); NEUTROPHILS % 56.8 % (36.0-66.0); PLATELET COUNT, AUTOMATED 250 10^3/uL (150-450); RED BLOOD COUNT 5.35 10^6/uL (4.30-6.10); WHITE BLOOD COUNT 7.3 10^3/uL (4.0-10.0)
[2024-05-23 19:44] LABS: PSA SCREENING 0.95 NG/ML (< 4.00)
[2024-05-23 19:48] LABS: ALKALINE PHOSPHATASE 100 U/L (40-129); ALT/SGPT 17 U/L (7.0-40); AST/SGOT 19 U/L (<34); BILIRUBIN,TOTAL 0.3 MG/DL (0.3-1.2); BLOOD UREA NITROGEN 22 MG/DL (9-23); CALCIUM LEVEL 9.5 MG/DL (8.5-10.1); CARBON DIOXIDE LEVEL 28 MMOL/L (20-31); CHLORIDE LEVEL 106 MMOL/L (98-107); CHOLESTEROL LEVEL 204 MG/DL (<200); CHOLESTEROL RISK RATIO 3.73 (<5); CREATININE FOR GFR 0.81 MG/DL (0.70-1.30); GLOMERULAR FILTRATION RATE > 60.0 (>56); GLUCOSE, FASTING 65 MG/DL (60-100); HDL CHOLESTEROL 54.6 MG/DL (>40); LDL CHOLESTEROL 122.8 MG/DL (<100); NON-HDL-C 149.4 MG/DL; POTASSIUM SERUM 4.2 MMOL/L (3.5-5.1); SODIUM LEVEL 142 MMOL/L (136-145); TOTAL PROTEIN 7.1 G/DL (5.7-8.2); TRIGLYCERIDES LEVEL 133 MG/DL (<150)
[2024-05-23 19:51] LABS: HEMOGLOBIN A1c 5.2 % (4.0-6.0)
== END ==
LOC: M PLALAB 15:36
PROVIDERS: ATTEND Physician Assistant Medical
DX: Z00.00 Encounter for general adult medical examination without abnormal findings (principal); R79.89 Other specified abnormal findings of blood chemistry; K21.9 Gastro-esophageal reflux disease without esophagitis; E78.00 Pure hypercholesterolemia, unspecified; Z12.5 Encounter for screening for malignant neoplasm of prostate

== ENCOUNTER → 2024-06-07 | Outpatient (CLI) | payer OTHER | LOC: M RAD 13:04 | PROVIDERS: ATTEND Physician Assistant Medical | DX: M47.896 Other spondylosis, lumbar region (principal); S22.080A Wedge compression fracture of T11-T12 vertebra, initial encounter for closed fracture; Y93.9 Activity, unspecified; Y92.9 Unspecified place or not applicable; M43.16 Spondylolisthesis, lumbar region ==

== ENCOUNTER → 2024-10-06 | Outpatient (CLI) | payer OTHER | LOC: M PLALAB 10:30 → M PLAIMG 10:30 | PROVIDERS: ATTEND Physician Assistant Medical | DX: M25.511 Pain in right shoulder (principal); M25.512 Pain in left shoulder; M25.521 Pain in right elbow; M25.522 Pain in left elbow ==